=== PATIENT | female | born 1980 | race African-American/Black ===

== ENCOUNTER → 2017-10-02 | Outpatient (CLI) | payer OTHER ==
--- NOTE | 2017-10-06 10:34 | MM ---
Reason for exam: clinical finding. Baseline mammogram. History: Took hormonal contraceptives for 10 years. Indicated problem(s): non-bloody discharge in both breasts. Physical Findings: Nurse did not find any significant physical abnormalities on exam. MG 3D Diag Mammo W/Cad DON Bilateral CC and MLO view(s) were taken. The breast tissue is heterogeneously dense. This may lower the sensitivity of mammography. There is no discrete abnormality. These results were verbally communicated with the patient and result sheet given to the patient on 10/02/17. ASSESSMENT: Negative, BI-RAD 1 RECOMMENDATION: Routine screening mammogram of both breasts at age 41. Manage patient on a clinical basis.
== END ==
LOC: RADMAMWWP 12:54
PROVIDERS: ATTEND Obstetrics & Gynecology
DX: O92.6 Galactorrhea (principal)
CPT/HCPCS: 77066; G0279; 77062

== ENCOUNTER → 2018-04-05 | Outpatient (CLI) | payer OTHER ==
--- NOTE | 2018-04-05 13:18 | US ---
EXAMINATION TYPE: US thyroid st tissue head/neck DATE OF EXAM: 04/05/2018 COMPARISON: NONE CLINICAL HISTORY: E04.9 Goiter. GLAND SIZE: Right Lobe: 4.9 x 1.9 x 1.9 cm Overall Parenchyma: homogenous Left Lobe: 5.6 x 2.4 x 2.3 cm Overall Parenchyma: homogeneous Isthmus Thickness: 0.9 cm NODULES RIGHT: # of nodules measured on right: 0 LEFT: # of nodules measured on left: 0 ISTHMUS: # of nodules measured in the isthmus: 0 Bilateral neck scanned; no evidence of lymphadenopathy. Enlarged thyroid gland is noted bilaterally. There is slight increased vascularity throughout. IMPRESSION: Enlarged homogeneous thyroid gland without nodularity. Slight hypervascularity can be seen in thyroid itis. Correlate with serum laboratory values.
--- NOTE | 2018-04-05 14:21 | US ---
EXAMINATION TYPE: US transvaginal DATE OF EXAM: 04/05/2018 COMPARISON: NONE CLINICAL HISTORY: R10.31 Right Lower Quad Pain TECHNIQUE: Transvaginal (TV). Patient unable to fill bladder. Date of LMP: 03/09/18 EXAM MEASUREMENTS: Uterus: 8.9 x 4.2 x 5.1 cm Endometrial Stripe: 0.7 cm Right Ovary: obscured by overlying bowel gas Left Ovary: 2.1 x 1.7 x 1.5cm 1. Uterus: Anteverted, wnl 2. Endometrium: wnl 3. Right Ovary: obscured by overlying bowel gas 4. Left Ovary: wnl 5. Bilateral Adnexa: wnl 6. Posterior cul-de-sac: wnl IMPRESSION: Unremarkable endometrial thickness, uterus and left ovary. However, the right ovary was n ot visualized due to overlying bowel.
== END | disposition home or self-care (01) ==
LOC: RADUSWWP 12:16
PROVIDERS: ATTEND Family Medicine
DX: R10.31 Right lower quadrant pain (principal); E04.9 Nontoxic goiter, unspecified
CPT/HCPCS: 76536; 76830

== ENCOUNTER → 2020-03-09 | Outpatient (CLI) | payer OTHER ==
--- NOTE | 2020-03-09 13:19 | US ---
EXAMINATION TYPE: US thyroid st tissue head/neck DATE OF EXAM: 03/09/2020 COMPARISON: US April 05, 2018 CLINICAL HISTORY: E04.9 Nontoxic goiter, unspecified. Goiter, pt states weight loss GLAND SIZE: Right Lobe: 6.4 x 2.2 x 1.8 cm Overall Parenchyma: heterogenous Left Lobe: 5.4 x 2.2 x 1.9 cm Overall Parenchyma: heterogeneous Isthmus Thickness: 0.7 cm Bilateral neck scanned, no evidence of lymphadenopathy. Bilateral enlarged, slightly heterogeneous, r ight lobe larger when compared to previous. Mildly heterogeneous thyroid with slight enlargement particularly right thyroid lobe on current study . No discrete nodules are evident. IMPRESSION: As above. No new greater than 1 cm nodules.
== END | disposition home or self-care (01) ==
LOC: RADUSWWP 12:51
PROVIDERS: ATTEND Family Medicine
DX: E04.9 Nontoxic goiter, unspecified (principal)
CPT/HCPCS: 76536

== ENCOUNTER → 2020-11-16 | Outpatient (CLI) | payer OTHER | END | disposition home or self-care (01) ==

== ENCOUNTER 2021-03-14 12:28 | Emergency (ER) | payer OTHER ==
[2021-03-14] MEDS ORDERED: SODIUM CHLORIDE 0.9% 1,000 ML IV ONE (13:28)
[2021-03-14] MEDS ORDERED: METOCLOPRAMIDE 5 MG/ML 2 ML VIAL IVP STA (13:29)
[2021-03-14] MEDS ORDERED: diphenhydrAMINE 50 MG/ML 1 ML VIAL IVP STA (13:29)
[2021-03-14] MEDS ORDERED: KETOROLAC 15 MG/ML 1 ML VIAL IVP STA (13:30)
--- NOTE | 2021-03-14 13:31 | ED ---
General Adult HPI - General Chief complaint: Dizziness Stated complaint: Headache/Lightheaded Time Seen by Provider: 03/14/21 12:36 Source: patient, EMS Mode of arrival: EMS Limitations: no limitations - History of Present Illness Initial comments: 40-year-old previously healthy female presents emergency Department with reported generalized weakness, cough and headache. States that majority of her family has tested positive for Covid over the past couple of days. She has had symptoms for approximately 4 days. Reports to a bitemporal headache without vision changes. No fevers or neck stiffness. Denies any head trauma. Denies chest pain. Does admit to a productive cough. Mild shortness of breath. No abdominal pain. Denies any changes in her bowel or bladder habits. She took an Aleve this morning with only mild improvement in her headache. She went to stand up from a heated position and felt like she was given a pass out and therefore called EMS. Denies concern for . no bleeding or discharge. No other alleviating, precipitating or modifying factors - Related Data Allergies Allergy/AdvReac Type Severity Reaction Status Date / Time No Known Allergies Allergy Verified 03/14/21 12:40 Review of Systems ROS Statement: Those systems with pertinent positive or pertinent negative responses have been documented in the HPI. ROS Other: All systems not noted in ROS Statement are negative. Past Medical History Past Medical History: No Reported History History of Any Multi-Drug Resistant Organisms: None Reported Past Surgical History: Tubal Ligation Smoking Status: Current every day smoker Past Alcohol Use History: Rare Past Drug Use History: None Reported General Exam Limitations: no limitations Course Vital Signs 03/14/21 03/14/21 03/14/21 12:31 14:22 16:10 Temperature 98.3 F 98.4 F Pulse Rate 85 80 Pulse Rate [ 87 Sitting Pulse Oximetery] Pulse Rate [ 81 Standing Pulse Oximetery] Pulse Rate [ 80 Supine Pulse Oximetery] Respiratory 18 20 Rate Blood Pressure 115/76 105/68 Blood Pressure 105/69 [Right Arm Sitting] Blood Pressure 105/71 [Right Arm Standing] Blood Pressure 106/69 [Right Arm Supine] O2 Sat by Pulse 100 98 Oximetry EKG Findings - EKG Comments: EKG Findings:: EKG demonstrates normal sinus rhythm with ventricular rate 69. MS interval 170. QRS 84. QTC of 400. No acute ST segment elevations or depressions Medical Decision Making - Medical Decision Making The patient is placed into room 33. A thorough history and physical exam was performed. IV is established laboratory studies are conducted. Patient does provide a urine sample. HCG is negative. Patient is swabbed for Covid which is positive. Chest x-ray demonstrates no acute cardio primary process. She was given a liter bolus of normal saline, 10 mg of Reglan, 50 kg of Toradol and 25 mg of Benadryl. She is reevaluated and reports to improvement in her headache. I did recommend antibody infusion however the patient refused stating that she wanted to go home. Patient will be discharged at this time. Instructed to rest, increase fluid intake and follow up with her primary care doctor. Return to the emergency room for any new or worsening symptoms. Patient was discharged in stable condition - Lab Data Result diagrams: 03/14/21 14:12 03/14/21 14:12 Lab Results 03/14/21 03/14/21 03/14/21 Range/Units 14:12 14:12 14:12 WBC 3.7 L (3.8-10.6) k/uL RBC 5.40 (3.80-5.40) m/uL Hgb 14.1 (11.4-16.0) gm/dL Hct 44.5 (34.0-46.0) % MCV 82.5 (80.0-100.0) fL MCH 26.1 (25.0-35.0) pg MCHC 31.6 (31.0-37.0) g/dL RDW 13.1 (11.5-15.5) % Plt Count 119 L (150-450) k/uL MPV 8.0 Neutrophils % 37 % Lymphocytes % 51 % Monocytes % 6 % Eosinophils % 1 % Basophils % 2 % Neutrophils # 1.4 (1.3-7.7) k/uL Lymphocytes # 1.9 (1.0-4.8) k/uL Monocytes # 0.2 (0-1.0) k/uL Eosinophils # 0.0 (0-0.7) k/uL Basophils # 0.1 (0-0.2) k/uL Sodium (137-145) mmol/L Potassium (3.5-5.1) mmol/L Chloride (98-107) mmol/L Carbon Dioxide (22-30) mmol/L Anion Gap mmol/L BUN (7-17) mg/dL Creatinine (0.52-1.04) mg/dL Est GFR (CKD-EPI)AfAm (>60 ml/min/1.73 sqM) Est GFR (CKD-EPI)NonAf (>60 ml/min/1.73 sqM) Glucose (74-99) mg/dL Calcium (8.4-10.2) mg/dL Total Bilirubin (0.2-1.3) mg/dL AST (14-36) U/L ALT (4-34) U/L Alkaline Phosphatase (38-126) U/L Total Protein (6.3-8.2) g/dL Albumin (3.5-5.0) g/dL Urine Color Yellow Urine Appearance Cloudy H (Clear) Urine pH 6.5 (5.0-8.0) Ur Specific [place] 1.028 (1.001-1.035) Urine Protein Trace H (Negative) Urine Glucose (UA) Negative (Negative) Urine Ketones Negative (Negative) Urine Blood Negative (Negative) Urine Nitrite Negative (Negative) Urine Bilirubin Negative (Negative) Urine Urobilinogen 2.0 (<2.0) mg/dL Ur Leukocyte Esterase Moderate H (Negative) Urine RBC 2 (0-5) /hpf Urine WBC 3 (0-5) /hpf Ur Squamous Epith Cells 3 (0-4) /hpf Amorphous Sediment Rare H (None) /hpf Urine Mucus Moderate H (None) /hpf Urine HCG, Qual (Not Detectd) Coronavirus (PCR) Detected A (Not Detectd) 03/14/21 03/14/21 Range/Units 14:12 14:12 WBC (3.8-10.6) k/uL RBC (3.80-5.40) m/uL Hgb (11.4-16.0) gm/dL Hct (34.0-46.0) % MCV (80.0-100.0) fL MCH (25.0-35.0) pg MCHC (31.0-37.0) g/dL RDW (11.5-15.5) % Plt Count (150-450) k/uL MPV Neutrophils % % Lymphocytes % % Monocytes % % Eosinophils % % Basophils % % Neutrophils # (1.3-7.7) k/uL Lymphocytes # (1.0-4.8) k/uL Monocytes # (0-1.0) k/uL Eosinophils # (0-0.7) k/uL Basophils # (0-0.2) k/uL Sodium 138 (137-145) mmol/L Potassium 4.3 (3.5-5.1) mmol/L Chloride 99 (98-107) mmol/L Carbon Dioxide 33 H (22-30) mmol/L Anion Gap 6 mmol/L BUN 20 H (7-17) mg/dL Creatinine 0.74 (0.52-1.04) mg/dL Est GFR (CKD-EPI)AfAm >90 (>60 ml/min/1.73 sqM) Est GFR (CKD-EPI)NonAf >90 (>60 ml/min/1.73 sqM) Glucose 98 (74-99) mg/dL Calcium 9.3 (8.4-10.2) mg/dL Total Bilirubin 0.3 (0.2-1.3) mg/dL AST 28 (14-36) U/L ALT 16 (4-34) U/L Alkaline Phosphatase 54 (38-126) U/L Total Protein 7.1 (6.3-8.2) g/dL Albumin 4.3 (3.5-5.0) g/dL Urine Color Urine Appearance (Clear) Urine pH (5.0-8.0) Ur Specific [place] (1.001-1.035) Urine Protein (Negative) Urine Glucose (UA) (Negative) Urine Ketones (Negative) Urine Blood (Negative) Urine Nitrite (Negative) Urine Bilirubin (Negative) Urine Urobilinogen (<2.0) mg/dL Ur Leukocyte Esterase (Negative) Urine RBC (0-5) /hpf Urine WBC (0-5) /hpf Ur Squamous Epith Cells (0-4) /hpf Amorphous Sediment (None) /hpf Urine Mucus (None) /hpf Urine HCG, Qual Not Detected (Not Detectd) Coronavirus (PCR) (Not Detectd) Disposition Clinical Impression: COVID-19, Pre-syncope, Cephalgia Disposition: HOME SELF-CARE Condition: Stable Instructions (If sedation given, give patient instructions): Coronavirus Disease 2019 (COVID-19) Additional Instructions: Please quarantine for 14 days until your symptoms improve. Return to the emergency room for any new or worsening symptoms Is patient prescribed a controlled substance at d/c from ED?: No Referrals: Matheus Ware DO [Primary Care Provider] - 1-2 days Time of Disposition: 15:53
[2021-03-14 14:23] LABS: Basophils # (A) 0.1 k/uL (0-0.2); Basophils % (A) 2 %; Eosinophils % (A) 1 %; HCT 44.5 % (34.0-46.0); HGB 14.1 gm/dL (11.4-16.0); Lymphocytes # (A) 1.9 k/uL (1.0-4.8); Lymphocytes % (A) 51 %; MCH 26.1 pg (25.0-35.0); MCHC 31.6 g/dL (31.0-37.0); MCV 82.5 fL (80.0-100.0); Monocytes # (A) 0.2 k/uL (0-1.0); Monocytes % (A) 6 %; Neutrophils # (A) 1.4 k/uL (1.3-7.7); Neutrophils % (A) 37 %; Platelet Count 119 k/uL (150-450); RDW 13.1 % (11.5-15.5); WBC 3.7 k/uL (3.8-10.6)
[2021-03-14 14:24] VITALS: PULSE 80
[2021-03-14 14:29] LABS: Amorphous Sediment,Urine Rare /hpf; Appearance,Urine Cloudy (Clear); Bilirubin,Urine Negative (Negative); Blood,Urine Negative (Negative); Color,Urine Yellow; Glucose,Urine (UA) Negative (Negative); Ketones,Urine Negative (Negative); Leukocyte Esterase,Urine Moderate (Negative); Mucus,Urine Moderate /hpf; Nitrite,Urine Negative (Negative); PH, Urine 6.5 (5.0-8.0); Protein,Urine Trace (Negative); RBC,Urine 2 /hpf (0-5); Specific Gravity,Urine 1.028 (1.001-1.035); Squamous Epithelial Cell,Urine 3 /hpf (0-4); WBC,Urine 3 /hpf (0-5)
[2021-03-14 14:38] LABS: ALT 16 U/L (4-34); AST 28 U/L (14-36); African American GFR (CKD) >90 (>60 ml/min/1.73 sqM); Albumin 4.3 g/dL (3.5-5.0); Alkaline Phosphatase 54 U/L (38-126); Anion Gap 6 mmol/L; Blood Urea Nitrogen 20 mg/dL (7-17); Calcium 9.3 mg/dL (8.4-10.2); Carbon Dioxide 33 mmol/L (22-30); Chloride 99 mmol/L (98-107); Glucose 98 mg/dL (74-99); Non-African American GFR(CKD) >90 (>60 ml/min/1.73 sqM); Potassium 4.3 mmol/L (3.5-5.1); Sodium 138 mmol/L (137-145); Total Bilirubin 0.3 mg/dL (0.2-1.3); Total Protein 7.1 g/dL (6.3-8.2)
--- NOTE | 2021-03-14 15:05 | XR ---
EXAMINATION TYPE: XR chest 2V DATE OF EXAM: 03/14/2021 COMPARISON: NONE HISTORY: Headache and dizziness. COVID positive. TECHNIQUE: Frontal and lateral views of the chest are obtained. FINDINGS: There is no focal air space opacity, pleural effusion, or pneumothorax seen. The cardiac silhouette size is within normal limits. The osseous structures are intact. IMPRESSION: No acute cardiopulmonary process.
[2021-03-14 16:11] VITALS: BP 105/68; RESP 20; TEMP 98.4
== END 2021-03-14 16:13 | disposition home or self-care (01) ==
LOC: EC 12:28
DX: U07.1 COVID-19 (principal); R55 Syncope and collapse; M54.2 Cervicalgia; F17.200 Nicotine dependence, unspecified, uncomplicated
CPT/HCPCS: 36415; 93005; 80053; 85025; 81001; 81025; 87635; 71046; 96374; 96375 ×2; 96361 ×2; 99285; J1200; J2765; J1885

== ENCOUNTER 2021-07-18 08:54 | Emergency (ER) | payer OTHER ==
[2021-07-18] MEDS ORDERED: HYDROmorphone 0.5 MG/0.5 ML SYRINGE IVP STA (08:59)
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
[2021-07-18 09:29] LABS: Basophils # (A) 0.1 k/uL (0-0.2); Basophils % (A) 1 %; Eosinophils # (A) 0.1 k/uL (0-0.7); Eosinophils % (A) 2 %; HCT 43.6 % (34.0-46.0); Lymphocytes # (A) 2.9 k/uL (1.0-4.8); Lymphocytes % (A) 39 %; MCH 26.7 pg (25.0-35.0); MCV 83.4 fL (80.0-100.0); Mean Platelet Volume 7.2; Monocytes # (A) 0.2 k/uL (0-1.0); Monocytes % (A) 3 %; Neutrophils # (A) 3.9 k/uL (1.3-7.7); Neutrophils % (A) 54 %; Platelet Count 186 k/uL (150-450); RBC 5.23 m/uL (3.80-5.40); RDW 12.9 % (11.5-15.5); WBC 7.4 k/uL (3.8-10.6)
[2021-07-18 09:49] LABS: INR 0.9 (<1.2); Partial Thromboplastin Time 24.6 sec (22.0-30.0); Prothrombin Time 10.3 sec (9.0-12.0)
[2021-07-18 09:55] LABS: ALT 13 U/L (4-34); AST 26 U/L (14-36); African American GFR (CKD) >90 (>60 ml/min/1.73 sqM); Albumin 4.3 g/dL (3.5-5.0); Alcohol <10 mg/dL; Alkaline Phosphatase 53 U/L (38-126); Anion Gap 7 mmol/L; Blood Urea Nitrogen 16 mg/dL (7-17); Calcium 9.1 mg/dL (8.4-10.2); Carbon Dioxide 26 mmol/L (22-30); Chloride 106 mmol/L (98-107); Glucose 99 mg/dL (74-99); Non-African American GFR(CKD) >90 (>60 ml/min/1.73 sqM); Potassium 3.8 mmol/L (3.5-5.1); Sodium 139 mmol/L (137-145); Total Bilirubin 0.4 mg/dL (0.2-1.3); Total Protein 7.2 g/dL (6.3-8.2)
[2021-07-18] MEDS ORDERED: SODIUM CHLORIDE 0.9% 500 ML 500 ML IV ONE (10:31)
[2021-07-18] MEDS ORDERED: methylPREDNISolone SOD SUCCI 125 MG/2 ML VIAL IV STA (10:31)
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
--- NOTE | 2021-07-18 11:29 | XR ---
EXAMINATION TYPE: XR hand complete LT DATE OF EXAM: 07/18/2021 COMPARISON: NONE HISTORY: Pain TECHNIQUE: Three views are submitted. FINDINGS: There is a displaced intra-articular fracture involving the dorsal surface distal phalanx fifth digit . Subchondral sclerosis involving the lunate bone may represent bone island. IMPRESSION: 1. There is a displaced intra-articular fracture involving the dorsal surface distal phalanx fifth d igit.
[2021-07-18] MEDS ORDERED: KETOROLAC 15 MG/ML 1 ML VIAL IVP STA (12:23)
[2021-07-18 12:32] LABS: Appearance,Urine Clear (Clear); Bilirubin,Urine Negative (Negative); Blood,Urine Negative (Negative); Color,Urine Yellow; Glucose,Urine (UA) Negative (Negative); Ketones,Urine Negative (Negative); Leukocyte Esterase,Urine Negative (Negative); Nitrite,Urine Negative (Negative); Protein,Urine Trace (Negative); Urobilinogen,Urine <2.0 mg/dL (<2.0)
[2021-07-18 12:43] LABS: Amphetamine Screen,Urine Not Detected (NotDetected); Barbiturate Screen,Urine Not Detected (NotDetected); Benzodiazepines Screen,Urine Not Detected (NotDetected); Cocaine Screen,Urine Not Detected (NotDetected); Methadone Screen, Urine Not Detected (NotDetected); Opiate Screen,Urine Detected (NotDetected); Oxycodone Screen, Urine Not Detected (NotDetected); Phencyclidine Screen,Urine Not Detected (NotDetected); Tricyclic Antidepressant,Urine Not Detected (NotDetected); Urn Cannabinoid Scrn Not Detected (NotDetected)
[2021-07-18 12:48] LABS: Specific Gravity,Urine >1.050 (1.001-1.035)
[2021-07-18 13:29] VITALS: RESP 18
[2021-07-18 14:33] VITALS: BP 116/80; PULSE 67; TEMP 98
== END 2021-07-18 14:33 | disposition home or self-care (01) ==
LOC: EC 08:54
DX: S20.219A Contusion of unspecified front wall of thorax, initial encounter (principal); S62.637A Displaced fracture of distal phalanx of left little finger, initial encounter for closed fracture; F17.200 Nicotine dependence, unspecified, uncomplicated; Z98.51 Tubal ligation status; V43.52XA Car driver injured in collision with other type car in traffic accident, initial encounter; Y92.410 Unspecified street and highway as the place of occurrence of the external cause
CPT/HCPCS: 99285; 96374; 96375 ×2; 96361; 36415; 93005; 86900; 86901; 80053; 84484; 85025; 85610; 85730; 86850; 81003; 80306; 80320; 73130; 72125; 70450; 71260; 74177; J2930; J1885; J1170; Q9967

== ENCOUNTER → 2021-09-06 | Outpatient (CLI) | payer OTHER ==
--- NOTE | 2021-09-06 12:37 | XR ---
EXAMINATION TYPE: XR chest 2V DATE OF EXAM: 09/06/2021 COMPARISON: Chest x-ray March 14, 2021. CT July 18, 2021 HISTORY: Left-sided chest pain. TECHNIQUE: Frontal and lateral views of the chest are obtained. FINDINGS: There is no focal air space opacity, pleural effusion, or pneumothorax seen. The cardiac silhouette size remains within normal limits. The osseous structures are intact. IMPRESSION: No acute process. No significant change from prior chest x-ray.
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
== END | disposition home or self-care (01) ==
LOC: RADXRMAIN 12:06
PROVIDERS: ATTEND Family Medicine
DX: M25.561 Pain in right knee (principal); M25.562 Pain in left knee
CPT/HCPCS: 71046

== ENCOUNTER 2021-10-09 11:40 | Day surgery (SDC) | payer OTHER ==
[2021-10-04 16:03] VITALS: BMI 25.4
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
[~2021-10-09 11:40] MED LIST: HYDROmorphone 0.5 MG/0.5 ML SYRINGE IVP PRN; LACTATED RINGERS 1,000 ML IV SCH; LIDOCAINE 1% (10MG/ML) FOR IV START INTRADERMA PRN; ONDANSETRON 4 MG/2 ML VIAL IVP ONE
[2021-10-09 12:13] VITALS: TEMP 97.2
[2021-10-09 12:37] LABS: Glucose,Whole Blood 87 mg/dL (75-99)
[2021-10-09 12:41] LABS: Basophils % (A) 1 %; Eosinophils # (A) 0.1 k/uL (0-0.7); Eosinophils % (A) 2 %; HCT 40.6 % (34.0-46.0); Hypochromasia Slight; Lymphocytes # (A) 2.7 k/uL (1.0-4.8); Lymphocytes % (A) 43 %; MCH 26.6 pg (25.0-35.0); MCHC 32.1 g/dL (31.0-37.0); MCV 82.9 fL (80.0-100.0); Mean Platelet Volume 7.4; Monocytes # (A) 0.3 k/uL (0-1.0); Monocytes % (A) 5 %; Neutrophils % (A) 48 %; Platelet Count 192 k/uL (150-450); RDW 13.2 % (11.5-15.5); WBC 6.2 k/uL (3.8-10.6)
[2021-10-09] MEDS ORDERED: fentaNYL (PF) 50 MCG/ML 2 ML AMP ONE (13:30)
[2021-10-09] MEDS ORDERED: LIDOCAINE 2% INJ 20 MG/ML (2 ML VIAL) ONE (13:30)
[2021-10-09] MEDS ORDERED: MIDAZOLAM 2 MG/2 ML VIAL ONE (13:30)
[2021-10-09] MEDS ORDERED: PROPOFOL 10 MG/ML 20 ML VIAL IV ONE (13:30)
[2021-10-09] MEDS ORDERED: LIDOCAINE 1% INJ 10MG/ML (20 ML MDV) SQ ONE (13:40)
[2021-10-09] MEDS ORDERED: BUPIVACAINE (PF) 0.5% 30 ML VIAL SQ ONE (13:40)
[2021-10-09 14:39] VITALS: RESP 16
[2021-10-09 15:03] VITALS: BP 113/59; PULSE 61
--- NOTE | 2021-10-10 06:52 | P.OP ---
Date of Procedure: 10/09/21 Preoperative Diagnosis: 1.) Left small finger distal phalanx fracture Postoperative Diagnosis: 1.) Left small finger distal phalanx fracture Procedure(s) Performed: 1.) Left small finger distal phalanx fracture closed reduction percutaneous pinning Implants: 0.035 K-wire x 2 Anesthesia: MAC Surgeon: Ed Chapman [employer] Message Broker Developer #1: Ford Krishnan Estimated Blood Loss (ml): 0 Description of Procedure: This is a 41 year old female who sustained a left small finger distal phalanx fracture that has failed conservative treatment with splinting and presents today for surgical intervention. Risks and benefits of surgery were discussed with the patient including bleeding, damage to surrounding tissue, infection, need for further surgery as well as risks of anesthesia including pulmonary embolism and even and the patient wished to proceed with surgical intervention. The patient was seen in the pre-operative area by myself. Consent and H&P were completed and updated. The correct extremity was marked in the pre- operative area by myself and all other questions were answered. Operative Narrative: The patient was brought to the operating room by the department of anesthesia. They remained on the portable stretcher and a rolling hand table was brought to the side of the operative extremity. Pre-operative time out was performed indicating the correct patient, procedure and laterality. All in the room agreed. Pre-operative antibiotics were given prior to skin incision. The patient was then drifted off to sleep by the department of anesthesia. A nonsterile tourniquet was then applied to the operative extremity. A 50:50 mixture of 0.5% bupivacaine and 1% lidocaine was used for a digital block, 6ccs total and the left upper extremity was then prepped and draped in normal sterile fashion. Flouroscopy was utilized and the small fragment was deemed too small for open reduction internal fixation therefore decision to proceed with closed extension block pinning was made. A 0.035 K-wire was inserted dorsal to the small fragment and the volar cortex of the middle phalanx was captured. A 0.035 K-wire was then inserted through the tip of the distal phalanx under live fluoroscopy and inserted just short of the DIP joint. The DIP joint was then fully extended and the K-wire was then inserted across the DIP joint. Acceptable alignment was appreciated and the finger was now straight. 2 K-wire tip protector balls were placed over the k-wires and ends were cut. Sterile dressing consisting of 4x4 and Coban was placed. The patient was then woken by the department of anesthesia and transferred to PACU in stable condition. Ford MERCEDES was present throughout the case to assist in major portions including fracture reduction and hardware placement. Ed Chapman D.O. Orthopedic Hand/Upper Extremity Surgeon
== END 2021-10-09 15:28 | disposition home or self-care (01) ==
LOC: OR 11:40
PROVIDERS: ATTEND Orthopaedic Surgery Hand Surgery
DX: S62.637A Displaced fracture of distal phalanx of left little finger, initial encounter for closed fracture (principal); F17.200 Nicotine dependence, unspecified, uncomplicated; F41.9 Anxiety disorder, unspecified; Z79.1 Long term (current) use of non-steroidal anti-inflammatories (NSAID)
CPT/HCPCS: 26727; 81025; 85025; J2250; J0690; J2405; J2001 ×2; J3010; J2704

== ENCOUNTER → 2021-12-19 | Outpatient (CLI) | payer OTHER ==
[2021-12-19 08:14] VITALS: BP 144/87; PULSE 73; RESP 18; TEMP 98.1
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
== END ==
LOC: PNWHC3 07:33
PROVIDERS: ATTEND Specialist
DX: M47.812 Spondylosis without myelopathy or radiculopathy, cervical region (principal); G89.21 Chronic pain due to trauma; F32.9 Major depressive disorder, single episode, unspecified; Z91.041 Radiographic dye allergy status
CPT/HCPCS: 99211

== ENCOUNTER → 2022-04-22 | Day surgery (SDC) | payer OTHER ==
[2022-04-18 15:53] VITALS: BMI 24.2
== END ==
LOC: ORPAIN 09:38
DX: M48.02 Spinal stenosis, cervical region (principal); M47.812 Spondylosis without myelopathy or radiculopathy, cervical region; Z53.8 Procedure and treatment not carried out for other reasons

== ENCOUNTER → 2022-07-31 | Outpatient (CLI) | payer OTHER ==
[2022-07-31 10:01] VITALS: BP 157/106; PULSE 79; RESP 18; TEMP 98.1
--- NOTE | 2022-07-31 12:58 | P.PAINPG ---
PQRS Measure Charge Sheet Comment: A 42 yr old female with a history of severe and chronic LBP secondary to lumbar DDD and spondylosis with facet arthropathy without myelopathy presents today for LBP. Pain level is provoked at 7/10 in intensity, constant, localized in the lumbar spine, achy in character w shooting towards the buttocks. Pain is provoked by bending, lifting. Pain is alleviated with medications, topicals, injections, heat, PT 8 weeks integrated with massage in July 2021, use of a cane for ambulatory assistance, repositioning and rest. Interventional pain procedures completed include LESI x1, NADIRA C6-C7 (Apr 2022) Patient is currently on Toradol prn Patient denies any side effects of the medication(s), denies excessive drowsiness or sleepiness, denies suicidal ideation and reports that the current pain medication is helping to control the pain and improve activities of daily living. Patient denies any motor or sensory deficits. Patient denies any fever or night sweats, denies any change in the bowel movements or urination. Physical Examination: -Constitutional: Cooperative. Not in acute distress . - Neurologic: Cranial nerve II to XII intact. No focal neurological deficits. - Psychatric: Alert & oriented x 3. Matching mood & appropriate affect. Judgment and insight intact. - Musculoskeletal: Cervical spine: Muscle bulk/ tone/ strength in the bilateral upper extremities normal Vertebral body tenderness to palpation over Spurling test positive Distraction test positive Facet loading test positive TTP Thoracic spine Muscle bulk / tone/ strength in the bilateral paraspinal muscles normal Vertebral body tender to palpation over Facet loading test positive TTP Lumbar spine: Motor bulk/ tone/ strength lower extremities , thigh and legs : 5/5 Deep tendon reflexes : Normal Knee Jerk. Normal Ankle Jerk . Vertebral body tenderness to palpation over L5 Lumbar Facet Loading Test positive Straight Leg Raise: positive at 30 degrees right side/ left side Gaenslen's Test positive Sacral spine : Severe tenderness over the Sacroiliac joint: right side / left side Range of motion: Flexion of the lumbar spine <60 degrees Range of motion: Extension of the lumbar spine <20 degrees Gaenslen's Test positive R / L Karen test: positive right side / left side Thigh Thrust Test positive R / L Sacral Thrust Test positive R/ L Assessment and plan: Chronic neck pain secondary to lumbar DDD, spondylosis with facet arthropathy without myelopathy Recommendation of NADIRA L5-S1 #1. May need a series of injections fro optim al pain relief. Risks, benefits of procedure discussed and pt verbalized understanding. Admits to anticoagulant use or medical history of diabetes. Protocol for discontinuation/ continuation of medications samy procedure discussed. All questions answered. I have spent less than 30 minutes on patient care today. Dr Terrazas was available by phone for the evaluation of this patient. The time was used to review the medical records including relevant urine studies and Prescription history (MAPs), review of the available imaging, evaluation and examination of the patient, coordination of care with the medical staff and if applicable referring physicians, as well as creation of the medical record PQRS Narrative: Hx Alcohol Use (MH) Yes: RARE Home Medications: Ambulatory Orders Cyclobenzaprine HCl 7.5 mg PO Q8HR PRN 04/18/22 Gabapentin [Neurontin] 300 mg PO TID 04/18/22 Iron Gummy 2 tab PO DAILY 04/18/22 Spironolactone 50 mg PO DAILY 04/18/22 Controlled Substance Measures - Controlled Substance Measures Is patient prescribed a controlled substance at discharge?: No
== END ==
LOC: PNWHC3 09:01
PROVIDERS: ATTEND Specialist
DX: M43.07 Spondylolysis, lumbosacral region (principal); M54.16 Radiculopathy, lumbar region; M43.16 Spondylolisthesis, lumbar region; M50.30 Other cervical disc degeneration, unspecified cervical region; M47.812 Spondylosis without myelopathy or radiculopathy, cervical region; G89.29 Other chronic pain; Z88.5 Allergy status to narcotic agent; Z91.041 Radiographic dye allergy status
CPT/HCPCS: 99211

== ENCOUNTER 2022-09-04 07:58 | Day surgery (SDC) | payer OTHER ==
[2022-09-02 10:56] VITALS: BMI 24.9
[2022-09-04] MEDS ORDERED: LACTATED RINGERS 1,000 ML IV SCH (08:29)
[2022-09-04] MEDS ORDERED: LIDOCAINE 1% (10MG/ML) FOR IV START INTRADERMA PRN (08:29)
[2022-09-04 08:32] VITALS: TEMP 97.8
[2022-09-04] MEDS ORDERED: methylPREDNISolone ACETATE 80 MG/ML 1 ML VIAL ONE (08:54)
[2022-09-04] MEDS ORDERED: MIDAZOLAM 2 MG/2 ML VIAL ONE (08:54)
[2022-09-04] MEDS ORDERED: fentaNYL (PF) 50 MCG/ML 2 ML AMP ONE (08:54)
[2022-09-04 09:36] VITALS: BP 145/98; PULSE 55; RESP 16
== END 2022-09-04 10:02 | disposition home or self-care (01) ==
LOC: ORPAIN 07:58
PROVIDERS: ATTEND Specialist
DX: M51.16 Intervertebral disc disorders with radiculopathy, lumbar region (principal); M47.26 Other spondylosis with radiculopathy, lumbar region; Z91.041 Radiographic dye allergy status
CPT/HCPCS: 81025; 62323; J2250; J1040; J3010

== ENCOUNTER → 2022-09-24 | Outpatient (CLI) | payer OTHER ==
--- NOTE | 2022-09-04 09:06 | P.PCN ---
Date of Procedure: 09/04/22 Procedure(s) Performed: PREOPERATIVE DIAGNOSIS: 1- Lumbar Degenerative Disc Diseases 2-Lumbar spondylosis with Facet arthropathy without myelopathy. POSTOPERATIVE DIAGNOSIS: 1-lumbar degenerative disc disease. 2-lumbar spondylosis with facet arthropathy without myelopathy. PROCEDURE 1. Lumbar epidural steroid injection under fluoroscopic guidance at the L5-S1 level. (Fluoroscopy imaging was available in radiology department) ANESTHESIA: moderate sedation with intravenous Versed 2 mg ,and fentanyle 50 Mcg Sedation start time : 856 Sedation end time : 900 EBL: Minimal PROCEDURE INDICATION: The patient with low back pain and radiculitis symptoms unresponsive to conservative treatment. Fluoroscopy was used to optimize visualization of the needle placement and to maximize safety. PROCEDURE DESCRIPTION / TECHNIQUE: The patient was seen and identified in the preoperative area. Risks, benefits, complications including but not limited to infections ,bleeding ,allergic reaction to the medications ,nerve damage and not complete pain releife , and alternatives were discussed with the patient. The patient agreed to proceed with the procedure and signed the consent. IV was started, and vital signs were stable. Patient was taken to the OR and time out was completed. The patient was placed in the prone position on procedure table and a pillow was placed under the abdomen to reduce lumbar lordosis. The lumbosacral area was prepped and draped in the usual sterile fashion.ere closely monitored during the procedure. Conscious sedation was used during the procedure to decrease patients anxiety. Vital signs was monitered during the entire procedure. Using anterior-posterior fluoroscopy, the L5-S1 interlaminar space was identified and the skin over this site was marked and then infiltrated with 1% lidocaine subcutaneously. Subsequently, a 20-gauge Tuohy epidural needle was inserted and advanced toward the epidural space using the ``Loss of resistance technique and guided by AP and lateral fluoroscopy. The correct needle position in the epidural space was verified with fluroscopy, after negative aspiration for blood and CSF and in the absence of paresthesias. Again after negative aspiration, a 3 ml mixture containing 80 mg of Depo-medrol ( Preservetive Free ), and 2 ml of preservative free Normal Saline, . Needle was withdrawn intact, skin was cleansed, and bandages were applied. COMPLICATIONS: None DISPOSITION / PLANS: The patient was placed in a supine position and transferred to the recovery area in a stable condition for observation. There was no evidence of lower extremity motor or sensory deficit after the procedure. Patient was discharged from the recovery room after meeting discharge criteria. Home discharge instructions were given to the patient by the staff. The patient was reexamined prior to discharge. The patient will schedule a follow up in the clinic in 2-4 weeks. note= Isovue was not injected because patient has ALLERGY to iodinated contrast media.
[2022-09-24 12:30] VITALS: BP 124/85; PULSE 92; RESP 18; TEMP 98.2
--- NOTE | 2022-09-24 15:03 | P.PAINPG ---
PQRS Measure Charge Sheet Comment: A 42 yr old female with a history of severe and chronic LBP secondary to lumbar DDD and spondylosis with facet arthropathy without myelopathy presents today for evaluation. Pt states she experienced 40% pain relief x 2 wks s/p procedure. Pain level is provoked at 8/10 in intensity, constant, localized in the lumbar spine, dull/ sharp in character w shooting towards the back of the legs. Pain is provoked by standing/ walking for periods of 20 min or more. Pain is alleviated with heat, ice, medications, lidocaine, use of a cane for ambulatory assistance, sitting, repositioning and rest. Interventional pain procedures completed include NADIRA L4-5 Patient is currently on Robaxin, Ibu Patient denies any side effects of the medication(s), denies excessive drowsiness or sleepiness, denies suicidal ideation and reports that the current pain medication is helping to control the pain and improve activities of daily living. Patient denies any motor or sensory deficits. Patient denies any fever or night sweats, denies any change in the bowel movements or urination. Physical Examination: -Constitutional: Cooperative. Not in acute distress . - Neurologic: Cranial nerve II to XII intact. No focal neurological deficits. - Psychatric: Alert & oriented x 3. Matching mood & appropriate affect. Judgment and insight intact. - Musculoskeletal: Cervical spine: Muscle bulk/ tone/ strength in the bilateral upper extremities normal Vertebral body tenderness to palpation over Spurling test positive Distraction test positive Facet loading test positive TTP Thoracic spine Muscle bulk / tone/ strength in the bilateral paraspinal muscles normal Vertebral body tender to palpation over Facet loading test positive TTP Lumbar spine: Motor bulk/ tone/ strength lower extremities , thigh and legs : 5/5 Deep tendon reflexes : Normal Knee Jerk. Normal Ankle Jerk . Vertebral body tenderness to palpation over [place] Test positive Lumbar Facet Loading Test positive BL L4-L5 L5-S1 Straight Leg Raise: positive at 30 degrees right side/ left side Gaenslen's Test positive Sacral spine : Severe tenderness over the Sacroiliac joint: right side / left side Range of motion: Flexion of the lumbar spine <60 degrees Range of motion: Extension of the lumbar spine <20 degrees Gaenslen's Test positive right side / left side Karen test: positive right side / left side Thigh Thrust Test positive right side / left side Sacral Thrust Test positive right side / left side Assessment and plan: Chronic LBP secondary to lumbar DDD, spondylosis with facet arthropathy without myelopathy Recommendation of BL facet block of the medial branches L4-L5, L5-S1 #1. May need a series of injections, up until RFA, for optimal pain relief. Risks, benefits of procedure discussed and pt verbalized understanding. Admits to anticoagulant use or medical history of diabetes. Protocol for discontinuation/ continuation of medications samy procedure discussed. Minimal anesthesia provided, if clinically indicated, consisting of Versed and Fentanyl. All questions answered. I have spent less than 30 minutes on patient care today. Dr Terrazas was available by phone for the evaluation of this patient. The time was used to review the medical records including relevant urine studies and Prescription history (MAPs), review of the available imaging, evaluation and examination of the patient, coordination of care with the medical staff and if applicable referring physicians, as well as creation of the medical record PQRS Narrative: Hx Alcohol Use (MH) Yes: RARE Home Medications: Ambulatory Orders HYDROcodone/APAP 10-325MG [[place] 10-325] 1 tab PO Q4HR PRN 09/02/22 Ibuprofen [Motrin] 600 mg PO Q8HR PRN 09/02/22 Venlafaxine HCl [Effexor] 37.5 mg PO DAILY 09/02/22 methocarbamoL [Methocarbamol] 750 mg PO TID 09/02/22 traMADol HCL 50 mg PO Q6H PRN 09/02/22 Controlled Substance Measures - Controlled Substance Measures Is patient prescribed a controlled substance at discharge?: No
== END ==
LOC: PNWHC3 10:23
PROVIDERS: ATTEND Specialist
DX: M51.37 Other intervertebral disc degeneration, lumbosacral region (principal); M47.817 Spondylosis without myelopathy or radiculopathy, lumbosacral region; G89.29 Other chronic pain; Z88.5 Allergy status to narcotic agent; Z91.041 Radiographic dye allergy status
CPT/HCPCS: 99211

== ENCOUNTER 2022-10-24 10:48 | Day surgery (SDC) | payer OTHER ==
[2022-10-22 11:03] VITALS: BMI 22.8
[2022-10-24] MEDS ORDERED: LACTATED RINGERS 1,000 ML IV SCH (11:08)
[2022-10-24] MEDS ORDERED: LIDOCAINE 1% (10MG/ML) FOR IV START INTRADERMA PRN (11:08)
[2022-10-24 11:18] VITALS: TEMP 97.2
[2022-10-24] MEDS ORDERED: fentaNYL (PF) 50 MCG/ML 2 ML AMP ONE (11:21)
[2022-10-24] MEDS ORDERED: methylPREDNISolone ACETATE 40 MG/ML 1 ML VIAL ONE (11:21)
[2022-10-24] MEDS ORDERED: ROPIVACAINE 5 MG/ML 20 ML AMPULE ONE (11:21)
[2022-10-24] MEDS ORDERED: MIDAZOLAM 2 MG/2 ML VIAL ONE (11:21)
--- NOTE | 2022-10-24 11:36 | P.PCN ---
Date of Procedure: 10/24/22 Procedure(s) Performed: PREOPERATIVE DIAGNOSIS : 1- Lumbar spondylosis with Facet Arthropathy without myelopathy . 2- Lumber degenerative disc disease POSTOPERATIVE DIAGNOSIS: 1- Lumbar spondylosis with Facet Arthropathy without myelopathy . 2- Lumber degenerative disc disease PROCEDURE: Diagnostic bilateral L3 , L4 , and L5 medial branch block under fluoroscopy guidance(fluoroscopy images available in the radiology Department ) ( To target the facet joint between Bilateral L4-5 , and L5-S1 ) ANESTHESIA:, Monitored anesthesia care as per anesthesia department. EBL: Minimal COMPLICATION: None PROCEDURE INDICATION: Chronic low back pain secondary to Facet arthropathy unresponsive to conservative treatment. PROCEDURE DESCRIPTION: the patient was seen and identified in the preop holding area , risks and benefits and possible complications of the procedure and alternative were discussed with the patient, and the patient agreed to proceed with the procedure and signed the consent and vital signs monitored during the procedure and fluoroscopy was used to maximize the benefit and accuracy of the needle placement, and sedation was given to decrease patient anxiety, patient was taken to the procedure room and placed in prone position vital signs monitored in the back prepped with chlorhexidine X3 then under strict sterile technique using a right oblique fluoroscopy ,the junction of the transverse process and the superior articulating process of the right L3 , L4 , and L5 vertebra which corresponding to the fluoroscopy image of the eye of the Harry dog on the block side for the medial branches and subsequently , after local infiltration of skin and subcu tissuies with Ropivacaine 0.5 % , one mL at each level ,then 22-gauge Quincke-type needles , 3 needle was used , each one of them placed at the junction of the base of the transverse process and the superior articular process at the appropriate level, and the needle was advanced until the periosteum contacted, needle placement confirmed with AP oblique and lateral view and after appropriate needle placement confirmed, and after negative aspiration for heme and CSF and there was no paresthesia 1-1/2 mL of Ropivacaine 0.5% mixed with 20 mg Depo-Medrol , then half mL injected at each level after negative aspiration the needle subsequently removed and the same procedure repeated for the left side at left side at L3 , L4 and L5 levels. At the end of the procedure and the needles removed and a bandage applied after the skin was cleaned the cleaning solution patient taken to recovery room in stable condition and monitors in the recovery room for 20-30 minutes and discharged home in stable condition after discharge criteria met and patient will follow up with the pain clinic in 2-4 weeks
[2022-10-24] MEDS ORDERED: IV FLUID CONTINUATION 800 ML IV ONE (11:41)
[2022-10-24 11:43] VITALS: RESP 14
[2022-10-24 12:01] VITALS: BP 131/83; PULSE 67
--- NOTE | 2022-10-24 13:21 | FL ---
EXAMINATION TYPE: FL guided pain mgmt statistic DATE OF EXAM: 10/24/2022 FLUOROSCOPY Fluoroscopy time of 8 seconds was used during bilateral lumbar facet blocks. 3 image/s document/s th e procedure.
== END 2022-10-24 12:15 | disposition home or self-care (01) ==
LOC: ORPAIN 10:48
PROVIDERS: ATTEND Specialist
DX: M51.36 Other intervertebral disc degeneration, lumbar region (principal); M47.816 Spondylosis without myelopathy or radiculopathy, lumbar region; G89.29 Other chronic pain; F17.210 Nicotine dependence, cigarettes, uncomplicated; F41.9 Anxiety disorder, unspecified; F32.A Depression, unspecified; Z79.899 Other long term (current) drug therapy; Z91.041 Radiographic dye allergy status
CPT/HCPCS: 81025; 64493; 64494 ×2; 99152; J2250; J1030; J3010; J2795

== ENCOUNTER → 2022-11-05 | Outpatient (CLI) | payer OTHER ==
--- NOTE | 2022-11-05 15:48 | USB ---
Reason for Exam: Clinical finding. Patient History: Menarche at age 14. First Full-Term at age 16. Patient used Hormonal Contraceptives for 10 years. Risk Values: Paulette 5 year model risk: 0.4%. NCI Lifetime model risk: 7.3%. Technique: Method: Whole Breast Handheld. Prior Study Comparison: 10/02/2017 Bilateral Diagnostic Mammogram, [facility]. Findings: The whole breast of the left breast, the axilla of the left breast and the retroareolar of the left breast were scanned. Imaged: Ultrasound imaging of: All 4 quadrants, the retroareolar region and axilla. No evidence for organizing fluid collection or mass. Overall Assessment: Negative, BI-RAD 1 Management: Screening Mammogram of both breasts in 1 year. Clinical management for patient's pain. A clinical breast exam by your physician is recommended on an annual basis and results should be correlated with mammographic findings. This exam should not preclude additional follow-up of suspicious palpable abnormalities. Results were given to the patient verbally at the time of exam. Electronically signed and approved by: Harshil Bill DO
== END | disposition home or self-care (01) ==
LOC: RADUSWWP 14:43
PROVIDERS: ATTEND Obstetrics & Gynecology
DX: N63.20 Unspecified lump in the left breast, unspecified quadrant (principal)

== ENCOUNTER → 2022-11-19 | Outpatient (CLI) | payer OTHER ==
[2022-11-19 11:52] VITALS: BP 138/83; PULSE 80; RESP 16; TEMP 98.8
--- NOTE | 2022-11-19 14:24 | P.PAINPG ---
PQRS Measure Charge Sheet Comment: A 42 yr old female with a history of severe and chronic LBP secondary to lumbar DDD and spondylosis with facet arthropathy without myelopathy presents today for evaluation s/p BL MBB L3-L5. Pt states she experienced 70 % pain relief x 12 hrs s/p procedure. Pain level is provoked at 7/10 in intensity, constant, localized in the lumbar spine, dull/ sharp in character w shooting towards the back of the legs. Pain is provoked by standing/ walking for periods of 20 min or more. Pain is alleviated with PT x 4 wks in 2021 which provoked pain, physician guided home stretches daily since PT in 2021, heat, ice, medications, lidocaine, use of a cane for ambulatory assistance, sitting, repositioning and rest. Oswestry axial pain score of 36. Interventional pain procedures completed include NADIRA L4-5, BL MBB L3-L5 x1 Patient is currently on Robaxin, Ibu Patient denies any side effects of the medication(s), denies excessive drowsiness or sleepiness, denies suicidal ideation and reports that the current pain medication is helping to control the pain and improve activities of daily living. Patient denies any motor or sensory deficits. Patient denies any fever or night sweats, denies any change in the bowel movements or urination. Physical Examination: -Constitutional: Cooperative. Not in acute distress . - Neurologic: Cranial nerve II to XII intact. No focal neurological deficits. - Psychatric: Alert & oriented x 3. Matching mood & appropriate affect. Judgment and insight intact. - Musculoskeletal: Cervical spine: Muscle bulk/ tone/ strength in the bilateral upper extremities normal Vertebral body tenderness to palpation over Spurling test positive Distraction test positive Facet loading test positive TTP Thoracic spine Muscle bulk / tone/ strength in the bilateral paraspinal muscles normal Vertebral body tender to palpation over Facet loading test positive TTP Lumbar spine: Motor bulk/ tone/ strength lower extremities , thigh and legs : 5/5 Deep tendon reflexes : Normal Knee Jerk. Normal Ankle Jerk . Vertebral body tenderness to palpation over L4 Escalante Test positive Lumbar Facet Loading Test positive BL L4-L5 L5-S1 Straight Leg Raise: positive at 30 degrees right side/ left side Gaenslen's Test positive Sacral spine : Severe tenderness over the Sacroiliac joint: right side / left side Range of motion: Flexion of the lumbar spine <60 degrees Range of motion: Extension of the lumbar spine <20 degrees Gaenslen's Test positive right side / left side Karen test: positive right side / left side Thigh Thrust Test positive right side / left side Sacral Thrust Test positive right side / left side Assessment and plan: Chronic LBP secondary to lumbar DDD, spondylosis with facet arthropathy without myelopathy Recommendation of SCS Trial. Follow up w behavioral health Dx: G89.4, M54.16 for SCS Trial. Video viewed. Risks, benefits of procedure discussed and pt verbalized understanding. Admits to anticoagulant use or medical history of diabetes. Protocol for discontinuation/ continuation of medications samy procedure discussed. Minimal anesthesia provided, if clinically indicated, consisting of Versed and Fentanyl. All questions answered. I have spent less than 30 minutes on patient care today. Dr Terrazas was available by phone for the evaluation of this patient. The time was used to review the medical records including relevant urine studies and Prescription history (MAPs), review of the available imaging, evaluation and examination of the patient, coordination of care with the medical staff and if applicable referring physicians, as well as creation of the medical record PQRS Narrative: Hx Alcohol Use (MH) Yes: RARE Home Medications: Ambulatory Orders Ibuprofen [Motrin] 600 mg PO Q8HR PRN 09/02/22 Venlafaxine HCl [Effexor] 37.5 mg PO DAILY 09/02/22 Controlled Substance Measures - Controlled Substance Measures Is patient prescribed a controlled substance at discharge?: No
== END ==
LOC: PNWHC3 10:30
PROVIDERS: ATTEND Specialist
DX: M51.37 Other intervertebral disc degeneration, lumbosacral region (principal); M47.817 Spondylosis without myelopathy or radiculopathy, lumbosacral region; G89.29 Other chronic pain; Z91.041 Radiographic dye allergy status
CPT/HCPCS: 99211

== ENCOUNTER → 2022-12-17 | Outpatient (CLI) | payer OTHER ==
[2022-12-17 14:19] VITALS: BP 118/82; PULSE 86; RESP 18; TEMP 98.8
--- NOTE | 2022-12-17 14:32 | P.PAINPG ---
Objective - Vital Signs Vital signs: Intake & Output 12/16/22 12/17/22 12/17/22 18:59 06:59 18:59 Weight 61.689 kg PQRS Measure Charge Sheet Comment: A 42 yr old female with a history of severe and chronic LBP secondary to lumbar DDD and spondylosis with facet arthropathy without myelopathy presents today for evaluation s/p BL MBB L3-L5. Pt states she experienced 70 % pain relief x 12 hrs s/p procedure. Pain level is provoked at 6/10 in intensity, constant, localized in the lumbar spine, achy, sharp in character w shooting towards the back of the legs. Pain is provoked by standing/ walking for periods of 20 min or more. Pain is alleviated with PT x 4 wks in 2021 which provoked pain, physician guided home stretches daily since PT in 2021, heat, ice, medications, lidocaine, use of a cane for ambulatory assistance, sitting, repositioning and rest. Oswestry axial pain score of 36. Interventional pain procedures completed include NADIRA L4-5, BL MBB L3-L5 x1 Patient is currently on Robaxin, Ibu Patient denies any side effects of the medication(s), denies excessive drowsiness or sleepiness, denies suicidal ideation and reports that the current pain medication is helping to control the pain and improve activities of daily living. Patient denies any motor or sensory deficits. Patient denies any fever or night sweats, denies any change in the bowel movements or urination. Physical Examination: -Constitutional: Cooperative. Not in acute distress . - Neurologic: Cranial nerve II to XII intact. No focal neurological deficits. - Psychatric: Alert & oriented x 3. Matching mood & appropriate affect. Judgment and insight intact. - Musculoskeletal: Cervical spine: Muscle bulk/ tone/ strength in the bilateral upper extremities normal Vertebral body tenderness to palpation over Spurling test positive Distraction test positive Facet loading test positive TTP Thoracic spine Muscle bulk / tone/ strength in the bilateral paraspinal muscles normal Vertebral body tender to palpation over Facet loading test positive TTP Lumbar spine: Motor bulk/ tone/ strength lower extremities , thigh and legs : 5/5 Deep tendon reflexes : Normal Knee Jerk. Normal Ankle Jerk . Vertebral body tenderness to palpation over L4 Escalante Test positive Lumbar Facet Loading Test positive BL L4-L5 L5-S1 Straight Leg Raise: positive at 30 degrees right side/ left side Gaenslen's Test positive Sacral spine : Severe tenderness over the Sacroiliac joint: right side / left side Range of motion: Flexion of the lumbar spine <60 degrees Range of motion: Extension of the lumbar spine <20 degrees Gaenslen's Test positive right side / left side Karen test: positive right side / left side Thigh Thrust Test positive right side / left side Sacral Thrust Test positive right side / left side Assessment and plan: Chronic LBP secondary to lumbar DDD, spondylosis with facet arthropathy without myelopathy Recommendation of SCS Trial. Obtained behavioral health clearance Dx: G89.4, M54.16 for SCS Trial. Risks, benefits of procedure discussed and pt verbalized understanding. Admits to anticoagulant use or medical history of diabetes. Protocol for discontinuation/ continuation of medications samy procedure discussed. Minimal anesthesia provided, if clinically indicated, consisting of Versed and Fentanyl. All questions answered. I have spent less than 30 minutes on patient care today. Dr Terrazas was available by phone for the evaluation of this patient. The time was used to review the medical records including relevant urine studies and Prescription history (MAPs), review of the available imaging, evaluation and examination of the patient, coordination of care with the medical staff and if applicable referring physicians, as well as creation of the medical record PQRS Narrative: Hx Alcohol Use (MH) Yes: RARE Home Medications: Ambulatory Orders Ibuprofen [Motrin] 600 mg PO Q8HR PRN 09/02/22 Venlafaxine HCl [Effexor] 37.5 mg PO DAILY 09/02/22 Gabapentin 300 mg PO TID 12/16/22 Controlled Substance Measures - Controlled Substance Measures Is patient prescribed a controlled substance at discharge?: No
== END ==
LOC: PNWHC3 13:36
PROVIDERS: ATTEND Specialist
DX: M51.37 Other intervertebral disc degeneration, lumbosacral region (principal); M47.817 Spondylosis without myelopathy or radiculopathy, lumbosacral region; G89.29 Other chronic pain; Z91.041 Radiographic dye allergy status
CPT/HCPCS: 99211

== ENCOUNTER 2022-12-24 09:42 | Day surgery (SDC) | payer OTHER ==
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
[~2022-12-24 09:42] MED LIST changes: +DEXAMETHASONE SOD PHOSPHATE 4 MG/ML 1 ML VIAL IV ONE; +droPERidol 5 MG/2 ML VIAL IVP ONE
[2022-12-24] MEDS ORDERED: LACTATED RINGERS 1,000 ML IV ONE (09:55)
[2022-12-24 10:19] LABS: Glucose,Whole Blood 86 mg/dL (70-110)
[2022-12-24 10:27] VITALS: TEMP 97.3
[2022-12-24] MEDS ORDERED: MIDAZOLAM 2 MG/2 ML VIAL ONE (10:43)
[2022-12-24] MEDS ORDERED: KETAMINE 10 MG/ML 20 ML VIAL ONE (10:43)
[2022-12-24] MEDS ORDERED: PROPOFOL 10 MG/ML 20 ML VIAL IV ONE (10:43)
[2022-12-24] MEDS ORDERED: fentaNYL (PF) 50 MCG/ML 2 ML AMP ONE (10:43)
[2022-12-24] MEDS ORDERED: BUPIVACAINE (PF) 0.5% 30 ML VIAL SQ ONE ×2 (10:45→10:50)
[2022-12-24] MEDS ORDERED: LIDOCAINE 2% INJ 20 MG/ML SQ ONE ×2 (10:45→10:50)
[2022-12-24] MEDS ORDERED: BACITRACIN ZINC 500 UNIT/GM OINT 28.4 GM TUBE TOPICAL ONE (11:27)
[2022-12-24 11:42] VITALS: RESP 16
[2022-12-24 11:55] VITALS: BP 139/78; PULSE 51
--- NOTE | 2022-12-24 16:41 | P.OP ---
Date of Procedure: 12/24/22 Preoperative Diagnosis: Left small finger distal phalanx fracture malunion Postoperative Diagnosis: Left small finger distal phalanx fracture malunion Procedure(s) Performed: Open treatment of left small finger distal phalanx fracture malunion with internal fixation (38291) Implants: 0.045 K-wire Anesthesia: MAC Surgeon: Ed Chapman Field Evidence Technician #1: Ford Krishnan Estimated Blood Loss (ml): 0 Pathology: none sent Condition: stable Disposition: PACU Description of Procedure: This is a 42 year old female who sustained a left small finger distal phalanx fracture over 1 year prior and underwent CRPP of her articular phalanx fracture. She ultimately developed a painful malunion and presents today for surgical intervention. Risks and benefits of surgery were discussed with the patient including bleeding, damage to surrounding tissue, infection, need for further surgery as well as risks of anesthesia including pulmonary embolism and even and the patient wished to proceed with surgical intervention. The patient was seen in the pre-operative area by myself. Consent and H&P were completed and updated. The correct extremity was marked in the pre-operative area by myself and all other questions were answered. Operative Narrative: The patient was brought to the operating room by the department of anesthesia. They remained on the portable stretcher and a rolling hand table was brought to the side of the operative extremity. Pre-operative time out was performed indicating the correct patient, procedure and laterality. All in the room agreed. Pre-operative antibiotics were given prior to skin incision. The patient was then drifted off to sleep by the department of anesthesia. A nonsterile tourniquet was then applied to the operative extremity. A 50:50 mixture of 0.5% bupivacaine and 1% lidocaine was used for a digital block, 6ccs total and the left upper extremity was then prepped and draped in normal sterile fashion. 15 blade scalpel was utilized to make an H type incision over the DIP joint of the left small finger. Sharp dissection was taken down through subcutaneous tissues. Extensor tendon was identified and this was split horizontally in order to gain access to the DIP joint. The fracture malunion site of the dorsal aspect of the distal phalanx was identified and a scalpel and ronguer was utilized to remove the fragment that was wedged in the DIP joint. The dorsal impingement site was now smooth and the articular portion of the DIP joint was congruent. There were minimal arthritic changes at the DIP joint. The joint was then irrigated and successful removal of the small ossific fragment was identified on x-ray. Under live flouroscopy a 0.045 K-wire was then inserted in retrograde fashion across the DIP joint stopping at the PIP joint. Correct position was confirmed on AP/Lat views. Wire end was cut a protective ball was placed over the tip. A 4-0 ethibond suture was then used to repair the terminal extensor tendon. Skin was then closed with 4-0 nylon suture and a soft dressing with adaptic, bacitracin, 4x4s and coban was applied. The tourniquet was let down and the hand had immediate perfusion. Ford MERCEDES was present throughout the case to assist in major portions including fracture reduction and hardware placement. The patient was woken by the department of anesthesia and transferred to PACU in stable condition. Ed Chapman D.O. Orthopedic Hand/Upper Extremity Surgeon
== END 2022-12-24 12:27 | disposition home or self-care (01) ==
LOC: OR 09:42
PROVIDERS: ATTEND Orthopaedic Surgery Hand Surgery
DX: S62.637 Displaced fracture of distal phalanx of left little finger (principal); F17.200 Nicotine dependence, unspecified, uncomplicated; Z91.041 Radiographic dye allergy status; Z98.890 Other specified postprocedural states; Z79.899 Other long term (current) drug therapy; X58.XXXD Exposure to other specified factors, subsequent encounter
CPT/HCPCS: 26765; J2001; J2250; J1100; J2405; J0690; J3010; J2704; J0665

== ENCOUNTER → 2023-01-15 | Outpatient (CLI) | payer OTHER ==
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
== END | disposition home or self-care (01) ==
LOC: RADUSWWP 09:24
PROVIDERS: ATTEND Orthopaedic Surgery
DX: S46.012D Strain of muscle(s) and tendon(s) of the rotator cuff of left shoulder, subsequent encounter (principal); X58.XXXD Exposure to other specified factors, subsequent encounter

== ENCOUNTER → 2023-01-21 | Outpatient (CLI) | payer OTHER ==
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
== END | disposition home or self-care (01) ==
LOC: RADMRIMAIN 20:00
PROVIDERS: ATTEND Orthopaedic Surgery
DX: M47.26 Other spondylosis with radiculopathy, lumbar region (principal)
CPT/HCPCS: 72148

== ENCOUNTER → 2023-02-19 | Day surgery (SDC) | payer OTHER ==
[2023-02-13 12:39] VITALS: BMI 22.3
[~2023-02-19] MED LIST changes: -DEXAMETHASONE SOD PHOSPHATE 4 MG/ML 1 ML VIAL IV ONE; -HYDROmorphone 0.5 MG/0.5 ML SYRINGE IVP PRN; +LACTATED RINGERS 1,000 ML IV ONE; -LIDOCAINE 1% (10MG/ML) FOR IV START INTRADERMA PRN; +MIDAZOLAM 2 MG/2 ML VIAL ONE; -ONDANSETRON 4 MG/2 ML VIAL IVP ONE; +ROPIVACAINE 5MG/ML 20ML VIAL ONE; -droPERidol 5 MG/2 ML VIAL IVP ONE; +fentaNYL (PF) 50 MCG/ML 2 ML AMP IVP ONE; +fentaNYL (PF) 50 MCG/ML 2 ML AMP ONE
[2023-02-19 11:03] VITALS: TEMP 97.5
--- NOTE | 2023-02-19 13:02 | P.PCN ---
Date of Procedure: 02/19/23 Procedure(s) Performed: PROCEDURES: 1- spinal cord stimulator trial under fluoroscopic guidance X2 lead (Fluoroscopy images stored on file in radiology department ) 2- complex programing of the spinal cord stimulator . PREOPERATIVE DIAGNOSIS: 1-lumbar spondylosis with lumbar facet arthropathy without myelopathy. 2-lumbar degenerative disc disease POSTOPERATIVE DIAGNOSIS: 1-same as preoperative diagnoses. ANESTHESIA: Monitored anesthesia care as per anesthesia department. BLOOD LOSS: Minimal. COMPLICATIONS: None. PROCEDURE INDICATIONS: The patient with a history of severe intractable low back pain who failed more conservative treatment measures. Patient had multiple pain interventions procedure and she got short-term benefit from it, discussed with the patient the option of referring her to have surgical spine intervention and she refused to have any spine surgery, patient was a candidate for spinal cord stimulator and she had the psychological testing done and showed that there is no contraindication for the spinal cord stimulator, patient is not interested in having any lumbar surgery PROCEDURE DESCRIPTION: The patient was seen and identified in the preoperative area. Risks, benefits, complications, and alternatives were discussed with the patient. The patient agreed to proceed with the procedure and signed the consent. IV was started.Patient was taken to the operating room and time out was performed. She received 2 gram of IV for prophylactic antibitics before the start of the procedure. The Thoracic and lumbar areas were prepped with Druaprep x2 and draped in the usual sterile fashion. Using sterile gowns and gloves, and after covering the fluoroscopic camera with a sterile drape, the procedure was proceeded on with. The fluoroscopic camera was placed in the AP position, and the L1-2 interlaminar space was identified and localized in the left paramedian trajectory with ropivacaine 0.5% 10 ml . Under fluoroscopic guidance, a 14 gauge epimed 6 inches long epidural needle from the [employer] spinal cord stimulator kit was guided into the interlaminar space. Then using the right oblique fluoroscopy, anterior-posterior fluoroscopy, and qglf-[id number]-boktjwwnaa technique, the epidural space was accessed. The first lead (8 contacts leads from [employer] ) was passed and noted to be in the dorsal portion of the epidural space in the lateral view. Then using anterior-posterior view, the first lead was passed up to the top of T7 vertebra. Subsequently, a second 14 gauge Tuohy epidural needle was inserted just posterior to the first needle and was advanced toward the epidural space in a parallel direction to the first needle. Then using lateral fluoroscopy, anterior-posterior fluoroscopy, and xvbo-fp-xvioopoaue technique, the epidural space was accessed by the second needle into the same interlaminar space as the first needle. Then a second similar lead was passed and noted to be in the dorsal portion of the epidural space in the lateral view. Then using anterior- posterior view, the second lead was passed up to the top of T8 vertebra, and w as left in a parallel position to the first lead. Subsequently, the leads were tested and they gave good stimulation on the low back area and the lower extremity , then after that the needle was removed and both legs secured using 3-0 silk, and then the dressing applied durind the procedure ,we performed complex programing of the spinal cord stimulator ,we changed pulse width ,amplitude and the frequencey of the stimulation and we got good coverage for the painful area ,the parasthesia overlaped the painfull area ,patients was satesfied withe the stimulation. COMPLICATIONS: No acute complications. COMMENTS: Each lead used had 8 contacts with a total of 16 contacts used. DISPOSITION / PLANS: The patient was placed in a supine position and transferred to the recovery area in a stable condition for observation. There was no evidence of lower extremity motor or sensory deficit after the procedure. Patient was discharged from the recovery room after meeting discharge criteria. Home discharge instructions were given to the patient by the staff. The patient was reexamined prior to discharge.
[2023-02-19 13:10] VITALS: RESP 14
--- NOTE | 2023-02-19 13:25 | FL ---
Fluoroscopy History: IMPLANT NEUROELECTRODE EPID imlant neuroelectrode epid fl: 85.0 dap: [phone]
[2023-02-19 14:23] VITALS: BP 151/76; PULSE 56
== END ==
LOC: ORPAIN 10:35
PROVIDERS: ATTEND Specialist
DX: M51.36 Other intervertebral disc degeneration, lumbar region (principal); M47.816 Spondylosis without myelopathy or radiculopathy, lumbar region
CPT/HCPCS: 63650; J2250; J3010; J2795; C1897; C1883; 81025; 99152; 99153

== ENCOUNTER → 2023-02-26 | Outpatient (CLI) | payer OTHER ==
[2023-02-26 10:56] VITALS: BP 144/72; PULSE 101; RESP 15; TEMP 98.7
--- NOTE | 2023-02-26 17:23 | P.PN ---
Progress Note - Text Progress Note Date: 02/26/23 This is a follow-up visit for this 42 years old female with a history of sever ,and chronic pain, she is diagnosed with chronic pain syndrome and lumbar degenerative disc disease and lumbar spondylosis with lumbar facet arthropathy, patient did not want to have, lumbar spine surgery and she preferred to have spinal cord stimulator and the procedure was discussed with the patient and we did a spinal cord stimulator trial last week and she is here to discuss the results of the spinal cord stimulator result she reported that she got more than 75% improvement of her low back pain, is very satisfied with the result of the treatment she denies any side effects and she reported that her activity of daily livings improved significantly during the trial., She denies any motor or sensory deficit she denies any fever or night sweats and she is interested in proceeding with a permanent implant, under strict sterile technique was able to remove the spinal cord stimulator trial lead x2 , tips intact and in the dressing applied, patient will follow up in the pain clinic the day of the procedure which will be permanent implant of the spine caused him later generator and permanent implant of the spinal cord stimulator leads 2
== END ==
LOC: PNWHC3 09:55
PROVIDERS: ATTEND Specialist
DX: G89.4 Chronic pain syndrome (principal); M54.16 Radiculopathy, lumbar region; Z91.041 Radiographic dye allergy status; Z88.8 Allergy status to other drugs, medicaments and biological substances
CPT/HCPCS: 99211

== ENCOUNTER → 2023-06-19 | Outpatient (CLI) | payer OTHER ==
--- NOTE | 2023-06-19 14:12 | FL ---
EXAMINATION TYPE: FL arthrogram shoulder LT DATE OF EXAM: 06/19/2023 COMPARISON: NONE HISTORY: Pre-MRI arthrogram for shoulder pain The procedure was explained to the patient. The risks, complications, benefits, and alternatives wer e discussed and any questions were answered. Informed consent was obtained. Patient was placed supi ne on the CT table and prepped and draped in the usual sterile fashion. Patient was premedicated for iodine allergy. All elements of maximal barrier and sterile technique utilized. Utilizing fluoroscopic guidance, an 22 gauge into the joint space and there is installation of the mi xture of normal saline, Isovue 300 and cannabis into the joint space. Imaging demonstrated ideal plac ement of the contrast. The patient was exercised the shoulder prior to MRI.. The patient was stable throughout the procedure and remained stable upon discharge. One image was submitted. 49 seconds of fluoroscopy time. DAP unavailable. IMPRESSION: 1. Successful fluoroscopic-guided left shoulder arthrogram..
== END | disposition home or self-care (01) ==
LOC: RADFLMAIN 12:47
PROVIDERS: ATTEND Orthopaedic Surgery
DX: M25.512 Pain in left shoulder (principal)
CPT/HCPCS: 23350; 73040; 73222; A9585; Q9967

== ENCOUNTER 2023-09-09 08:05 | Day surgery (SDC) | payer OTHER ==
[2023-09-07 12:19] VITALS: BMI 23.5
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
[~2023-09-09 08:05] MED LIST changes: +HYDROmorphone 0.5 MG/0.5 ML SYRINGE IVP PRN; -LACTATED RINGERS 1,000 ML IV ONE; -LACTATED RINGERS 1,000 ML IV SCH; +LIDOCAINE 1% (10MG/ML) FOR IV START INTRADERMA PRN; -MIDAZOLAM 2 MG/2 ML VIAL ONE; -ROPIVACAINE 5MG/ML 20ML VIAL ONE; +SCOPOLAMINE 1 MG/72 HR PATCH TRANSDERM ONE; +droPERidol 5 MG/2 ML VIAL IVP ONE; -fentaNYL (PF) 50 MCG/ML 2 ML AMP IVP ONE; -fentaNYL (PF) 50 MCG/ML 2 ML AMP ONE
[2023-09-09] MEDS: LACTATED RINGERS 1,000 ML IV SCH (08:54)
[2023-09-09 09:00] VITALS: RESP 16; TEMP 96.9
[2023-09-09] MEDS: DEXAMETHASONE SOD PHOSPHATE 4 MG/ML 1 ML VIAL IV ONE (09:06)
[2023-09-09] MEDS: ONDANSETRON 4 MG/2 ML VIAL ONE (09:06)
[2023-09-09] MEDS ORDERED: PROPOFOL 10 MG/ML 20 ML VIAL IV ONE (09:19)
[2023-09-09] MEDS ORDERED: MIDAZOLAM 2 MG/2 ML VIAL ONE (09:19)
[2023-09-09] MEDS ORDERED: fentaNYL (PF) 50 MCG/ML 2 ML AMP ONE (09:19)
[2023-09-09] MEDS: BUPIVACAINE (PF) 0.5% 30 ML VIAL SQ ONE (09:25)
[2023-09-09] MEDS: LIDOCAINE 2% INJ 20 MG/ML SQ ONE (09:25)
[2023-09-09] MEDS: BACITRACIN ZINC 500 UNIT/GM OINT 28.4 GM TUBE TOPICAL ONE (09:45)
--- NOTE | 2023-09-09 09:55 | P.OP ---
Date of Procedure: 09/09/23 Preoperative Diagnosis: Left small finger retained foreign body Postoperative Diagnosis: Left small finger retained foreign body Procedure(s) Performed: Left small finger retained foreign body excision Anesthesia: MAC Surgeon: Ed Chapman Substation Technician #1: Ford Krishnan Estimated Blood Loss (ml): 0 Pathology: none sent Condition: stable Disposition: PACU Description of Procedure: This is a 43 year old female who presents today for a left small finger foreign body excision. Risks and benefits of surgery were discussed with the patient including bleeding, damage to surrounding tissue, infection, need for further surgery as well as risks of anesthesia including pulmonary embolism and even and the patient wished to proceed with surgical intervention. The patient was seen in the pre-operative area by myself. Consent and H&P were completed and updated. The correct extremity was marked in the pre-operative area by myself and all other questions were answered. Operative Narrative: The patient was brought to the operating room by the department of anesthesia. They remained on the portable stretcher and a rolling hand table was brought to the side of the operative extremity. Pre-operative time out was performed indicating the correct patient, procedure and laterality. All in the room agreed. Pre-operative antibiotics were given prior to skin incision. The patient was then drifted off to sleep by the department of anesthesia. Digital block was performed with 7cc's of 0.5% Lidocaine and 1% lidocaine in a 50:50 mixture. A nonsterile tourniquet was then applied to the operative extremity and the left upper extremity was then prepped and draped in normal sterile fashion. The operative extremity was the exsanguinated with an esmarch bandage and the tourniquet was inflated to 250mmHg. Longitudinal incisions were made at the radial and ulnar boarder of the eponychial fold and the eponychium was elevated from the underlying nailbed and extensor tendon. There appeared to be ethibond sutures in the subcutaneous tissue at the level of the opening of the skin that was not healing. This was excised with a 15 blade scalpel. the wound edges were the repaired with 4-0 nylon suture. The patient was then woken by the department of anesthesia and transferred to PACU in stable condition. Ford MERCEDES was present to assist in manipulation of the hand. Ed Chapman D.O. Orthopedic Hand/Upper Extremity Surgeon
[2023-09-09 10:43] VITALS: BP 120/78; PULSE 52
== END 2023-09-09 10:25 | disposition home or self-care (01) ==
LOC: OR 08:05
PROVIDERS: ATTEND Orthopaedic Surgery Hand Surgery
DX: S60.457A Superficial foreign body of left little finger, initial encounter (principal); E78.5 Hyperlipidemia, unspecified; F17.200 Nicotine dependence, unspecified, uncomplicated; Z98.51 Tubal ligation status; Z98.890 Other specified postprocedural states; Z79.899 Other long term (current) drug therapy; Z88.1 Allergy status to other antibiotic agents; Z91.041 Radiographic dye allergy status; X58.XXXA Exposure to other specified factors, initial encounter
CPT/HCPCS: 81025; 10120; J2001; J2250; J1100; J0690; J2405; J3010; J2704; J0665